=== PATIENT | male | born 1955 | race Two or more races ===

== ENCOUNTER 2019-12-30 06:00 | Outpatient (CLI) | payer OTHER ==
[~2019-12-30] VITALS: Ht 177.8 cm; Wt 86.6 kg
[2019-12-30] MEDS ORDERED: METFORMIN HCL850 MG (09:23)
[2019-12-30] MEDS ORDERED: IBU400 MG PO (09:24)
[2019-12-30] MEDS ORDERED: GABAPENTIN400 MG PO (09:24)
[2019-12-30] MEDS ORDERED: SAW PALMETTO500 MG PO (09:25)
== END 2019-12-30 06:05 | disposition home or self-care (01) ==
LOC: LAB 06:00 → SURG 01-06 08:00 → EDSTATUS 01-06 08:00
DX: C61 Malignant neoplasm of prostate (principal); Z01.810 Encounter for preprocedural cardiovascular examination; Z01.812 Encounter for preprocedural laboratory examination

== ENCOUNTER 2020-02-06 11:48 | Inpatient (IN) | payer OTHER ==
[~2020-02-06] VITALS: Ht 177.8 cm; Wt 86.2 kg
[~2020-02-06 11:48] MED LIST: GABAPENTIN400 MG PO; IBU400 MG PO; METFORMIN HCL850 MG; SAW PALMETTO500 MG PO
[2020-02-10] MEDS ORDERED: METFORMIN HCL850 M1 PO (07:56)
== END 2020-02-12 14:39 | disposition home or self-care (01) | DRG 708 ==
LOC: O/R 02-10 06:00 → SURH 02-10 06:00 → CIR.AMB 02-10 11:33 → EDSTATUS 02-10 11:44 → SURH 02-10 11:46
PROVIDERS: ADMIT Urology
PROC: 07BC0ZX Excision of Pelvis Lymphatic, Open Approach, Diagnostic (ICD-10-PCS; 2020-02-10)
PROC: 0VT00ZZ Resection of Prostate, Open Approach (ICD-10-PCS; principal; 2020-02-10 07:00)
DX: C61 Malignant neoplasm of prostate (principal); E11.9 Type 2 diabetes mellitus without complications; Z79.4 Long term (current) use of insulin